=== PATIENT | male | born 1945 | race Caucasian/White ===

== ENCOUNTER → 2018-06-15 | Outpatient (CLI) | payer MEDICARE | END | disposition home or self-care (01) | LOC: SHCH 08:06 | PROVIDERS: ATTEND Internal Medicine Cardiovascular Disease | DX: I11.9 Hypertensive heart disease without heart failure (principal) | CPT/HCPCS: 93306 ==

== ENCOUNTER → 2018-06-20 | Outpatient (CLI) | payer MEDICARE | END | disposition home or self-care (01) | LOC: SHCH 08:36 | PROVIDERS: ATTEND Internal Medicine Cardiovascular Disease | DX: I71.4 Abdominal aortic aneurysm, without rupture (principal) | CPT/HCPCS: 93978 ==

== ENCOUNTER → 2018-06-28 | Outpatient (CLI) | payer OTHER | END | disposition home or self-care (01) | LOC: OIH 14:03 | PROVIDERS: ATTEND Internal Medicine Cardiovascular Disease | DX: Z13.6 Encounter for screening for cardiovascular disorders (principal) | CPT/HCPCS: 75571 ==

== ENCOUNTER 2020-11-04 10:23 | Day surgery (SDC) | payer MEDICARE ==
[2020-11-02 12:48] LABS: BASOPHILS % (AUTO) 0.4 % (0.0-5.0); EOSINOPHILS % (AUTO) 1.1 % (0.0-8.0); LYMPHOCYTES % (AUTO) 17.5 % (21.0-51.0); MEAN CORPUSCULAR HEMOGLOBIN 29.9 pg (27.0-33.0); MEAN CORPUSCULAR HGB CONC 31.8 g/dL (32.0-36.0); MEAN CORPUSCULAR VOLUME 93.9 fL (79-99); MONOCYTES % (AUTO) 7.6 % (3.0-13.0); NEUTROPHILS % (AUTO) 73.1 % (40.0-77.0); PLATELET COUNT (AUTO) 275 K/uL (130-400); RED BLOOD CELL COUNT(AUTO) 4.79 MIL/uL (4.50-6.20); RED CELL DISTRIBUTION WIDTH 13.4 % (11.0-15.5); WHITE BLOOD COUNT (AUTO) 7.9 K/uL (4.8-10.8)
[2020-11-02 12:59] LABS: APPEARANCE,URINE Clear (CLEAR); BILIRUBIN,URINE Negative (NEGATIVE); COLOR,URINE Yellow (YELLOW); GLUCOSE, URINE (UA) Negative (NEGATIVE); INR 0.96 (0.85-1.15); KETONES,URINE Trace mg/dL (NEGATIVE); LEUKOCYTE ESTERASE ,URINE Negative (NEGATIVE); NITRATE,URINE Negative (NEGATIVE); OCCULT BLOOD,URINE Negative (NEGATIVE); PH,URINE 5.5 (5.0-8.0); PROTEIN,URINE Negative (NEGATIVE); PROTHROMBIN TIME 10.5 SEC (9.6-11.6)
[2020-11-02 13:01] LABS: PARTIAL THROMBOPLASTIN TIME 26.6 SEC (26.3-35.5)
[2020-11-02 13:02] LABS: BACTERIA,URINE Rare /HPF (None Seen); RBC,URINE 0-1 /HPF (0-1); SQUAMOUS EPITHELIAL CELL,UR Rare /HPF (0-2); WBC,URINE 0-1 /HPF (0-1)
[2020-11-02 13:08] LABS: ALBUMIN 3.7 g/dL (3.5-5.0); BILIRUBIN,TOTAL 0.7 mg/dL (0.2-1.0); POTASSIUM 4.6 mmol/L (3.5-5.1); TOTAL PROTEIN, SERUM 6.9 g/dL (6.0-8.3)
[2020-11-03 10:46] VITALS: BP 143/72
[~2020-11-04] VITALS: Ht 175.3 cm; Wt 87.1 kg
[2020-11-04] VITALS (23 sets, daily range): BP systolic 123–165; BP diastolic 77–95
[~2020-11-04 10:23] MED LIST: 0.9%NACL 1000ML 1,000 ML IV SCH; AMLO1CAP14 PO; CEFAZOLIN SODIUM 1 GM VIAL IVP ONE; CETI-89 PO; DONE5TAB33 PO; PREVAGEN PO; SAW160CA3 PO
[2020-11-04] MEDS ORDERED: LACTATED RINGERS 1000ML 1,000 ML IV ONE (10:41)
[2020-11-04] MEDS ORDERED: CEFAZOLIN SODIUM 1 GM VIAL ONE (11:00)
[2020-11-04] MEDS ORDERED: BUPIVACAINE/PF 0.5% 30ML VIAL ONE (11:12)
[2020-11-04] MEDS ORDERED: FENTANYL CITRATE PF 50 MCG/1 ML 2ML VIAL ONE (12:11)
[2020-11-04] MEDS ORDERED: LIDOCAINE PF 100MG/5ML (2%) SYRINGE 5ML ONE (12:11)
[2020-11-04] MEDS ORDERED: MIDAZOLAM HCL 1 MG/ML 2ML VIAL ONE (12:11)
[2020-11-04] MEDS ORDERED: PROPOFOL 10 MG/ML 20ML VIAL IV ONE ×2 (12:11→13:02)
[2020-11-04] MEDS ORDERED: ROCURONIUM 10MG/1ML SYR 10 MG/ML ML ONE ×2 (12:11→13:10)
[2020-11-04] MEDS ORDERED: GLYCOPYRROLATE 1 MG/5 ML SYRINGE ONE ×2 (12:42→14:23)
[2020-11-04] MEDS ORDERED: EPHEDRINE SULFATE 50 MG/ML AMPULE ONE (12:53)
[2020-11-04] MEDS ORDERED: ROPIVACAINE 0.5% 5MG/ML 30ML IJ ONE (14:20)
[2020-11-04] MEDS ORDERED: NEOSTIGMINE 5MG/5ML SYR IV ONE (14:23)
[2020-11-04] MEDS ORDERED: MEPERIDINE-PF 25 MG/ML SYG ONE ×2 (14:58→15:10)
[2020-11-04] MEDS ORDERED: SIMETHICONE 80 MG TAB.CHEW ONE (16:08)
[2020-11-04] MEDS ORDERED: KETOROLAC 30MG VIAL (30MG/ML) ONE (16:48)
== END 2020-11-04 18:25 | disposition home or self-care (01) ==
LOC: DAH 10:23
PROVIDERS: ATTEND Student in an Organized Health Care Education/Training Program
DX: K43.2 Incisional hernia without obstruction or gangrene (principal); Z20.822 Contact with and (suspected) exposure to COVID-19; E66.9 Obesity, unspecified; Z85.46 Personal history of malignant neoplasm of prostate; Z68.26 Body mass index [BMI] 26.0-26.9, adult; Z79.01 Long term (current) use of anticoagulants; Z87.891 Personal history of nicotine dependence
CPT/HCPCS: 36415; 49654; 71045; 80053; 81001; 85025; 85610; 85730; 87426; 93005; A4215; A4221; A4222; A4223; A4649 ×2; A4663; C1769 ×3; G0168; J0690; J1885; J2001; J2175 ×2; J2250; J2704 ×2; J2710; J2795; J3010; J3490 ×4; J7030; J7120 ×2

== ENCOUNTER 2023-06-20 13:23 | Observation (INO) | payer MEDICARE, OTHER ==
[~2023-06-20] VITALS: Ht 175.3 cm; Wt 88.5 kg
[~2023-06-20 13:23] MED LIST changes: -0.9%NACL 1000ML 1,000 ML IV SCH; -AMLO1CAP14 PO; +AMLO1CAP87 PO; -CEFAZOLIN SODIUM 1 GM VIAL IVP ONE
[2023-06-20 16:31] LABS: BASOPHILS # (AUTO) 0.02 K/uL (0.00-0.20); BASOPHILS % (AUTO) 0.4 % (0.0-5.0); EOSINOPHILS # (AUTO) 0.02 K/uL (0.00-0.70); EOSINOPHILS % (AUTO) 0.4 % (0.0-8.0); HEMATOCRIT 41.9 % (42-54); IMMATURE GRANULOCYTE ABSOLUTE 0.01 K/uL (0-1); LYMPHOCYTES # (AUTO) 0.8 K/uL (1.0-4.8); LYMPHOCYTES % (AUTO) 14.9 % (21.0-51.0); MEAN CORPUSCULAR HEMOGLOBIN 30.1 pg (27.0-33.0); MEAN CORPUSCULAR HGB CONC 32.2 g/dL (32.0-36.0); MEAN CORPUSCULAR VOLUME 93.3 fL (79-99); MONOCYTES # (AUTO) 0.7 K/uL (0.1-1.0); MONOCYTES % (AUTO) 13.2 % (3.0-13.0); NEUTROPHILS # (AUTO) 3.9 K/uL (1.8-7.7); NEUTROPHILS % (AUTO) 70.9 % (40.0-77.0); PLATELET COUNT (AUTO) 222 K/uL (130-400); RED BLOOD CELL COUNT(AUTO) 4.49 MIL/uL (4.50-6.20); RED CELL DISTRIBUTION WIDTH 13.3 % (11.0-15.5); WHITE BLOOD COUNT (AUTO) 5.5 K/uL (4.8-10.8)
[2023-06-20 16:33] LABS: RAPID GROUP A STREP negative (NEGATIVE)
[2023-06-20 16:34] LABS: COVID19 (SARS ANTIGEN RAPID) PRESUMPTIVE NEGATIVE (NEGATIVE)
[2023-06-20 16:35] LABS: CREATININE 0.7 mg/dL (0.5-1.3); POTASSIUM 3.7 mmol/L (3.5-5.1)
[2023-06-20 16:35] LABS: INFLUENZA TYPE A Negative For Type A (NEGATIVE); INFLUENZA TYPE B Negative For Type B (NEGATIVE)
[2023-06-20 16:40] LABS: ALBUMIN 3.4 g/dL (3.5-5.0); BILIRUBIN,TOTAL 0.9 mg/dL (0.2-1.0); TOTAL PROTEIN, SERUM 6.9 g/dL (6.0-8.3)
[2023-06-20] MEDS: ALBUTEROL 0.083% 2.5 MG/3 ML INH IH ONE (17:23)
[2023-06-20 17:24] VITALS: PULSE 90; RESP 20
[2023-06-20] MEDS: GUAIFENESIN 600 MG TABLET.ER PO ONE (19:10)
[2023-06-20] MEDS: ENOXAPARIN SODIUM 100 MG/1 ML SQ ONE (19:10)
[2023-06-20] MEDS: ASPIRIN 325MG TAB PO ONE (19:10)
[2023-06-20] MEDS: METOPROLOL TARTRATE 1 MG/ML 5ML VIAL IV ONE (19:11)
[2023-06-20] MEDS: 0.9%NACL 1000ML 1,000 ML IV ONE (19:11)
[2023-06-20] MEDS ORDERED: KETOROLAC 15MG/ML VIAL (15MG/ML) IV PRN (19:30)
[2023-06-20] MEDS ORDERED: HYDROCODONE/ACETAMINOPHEN 5/325 MG TAB PO PRN (19:30)
[2023-06-20] MEDS ORDERED: ALBUTEROL 0.083% 2.5 MG/3 ML INH IH PRN (19:30)
[2023-06-20] MEDS ORDERED: DiphenhydrAMINE HCL 50 MG/ML VIAL IV PRN (19:30)
[2023-06-20] MEDS ORDERED: ZOLPIDEM TARTRATE 5 MG TAB PO PRN (19:30)
[2023-06-20] MEDS ORDERED: ACETAMINOPHEN 325 MG TAB PO PRN ×3 (19:30)
[2023-06-20] MEDS ORDERED: NITROGLYCERIN 0.4 MG SL TAB SL PRN (19:30)
[2023-06-20] MEDS ORDERED: GUAIFENESIN-DM 200/20 MG 10 ML PO PRN (19:30)
[2023-06-20] MEDS ORDERED: FAMOTIDINE 20MG VIAL IV PRN (19:30)
[2023-06-20] MEDS ORDERED: LACTULOSE 20 GM/30 ML UDCUP PO PRN (19:30)
[2023-06-20] MEDS ORDERED: MAG/ALUM/SIMETH 30 ML UDCUP PO PRN (19:30)
[2023-06-20] MEDS: INSULIN HUMULIN R 100 UNIT/ML 3ML SQ SCH (21:00)
[2023-06-20] MEDS: FAMOTIDINE 20MG VIAL IV SCH (21:07)
[2023-06-20 21:28] LABS: ADD UA MICROSCOPIC YES; APPEARANCE,URINE CLEAR (CLEAR); BILIRUBIN,URINE NEGATIVE (NEGATIVE); COLOR,URINE LIGHT-YELLOW (YELLOW); GLUCOSE, URINE (UA) >=1000 mg/dL (NEGATIVE); KETONES,URINE 20 mg/dL (NEGATIVE); LEUKOCYTE ESTERASE ,URINE NEGATIVE Leu/uL (NEGATIVE); NITRATE,URINE NEGATIVE (NEGATIVE); PH,URINE 6.5 (5.0-8.0); PROTEIN,URINE 10 mg/dL (NEGATIVE); UROBILINOGEN,URINE 0.2 mg/dL (0.2-1.0)
[2023-06-20 21:30] LABS: MUCUS,URINE RARE LPF (None Seen); WBC,URINE 0-1 /HPF (0-1)
[2023-06-21] VITALS (9 sets, daily range): BP systolic 154–178; BP diastolic 65–102; PULSE 83–104; RESP 18–20; O2SAT 96–98
[2023-06-21] MEDS: HYDRALAZINE 20MG/ML VIAL IV PRN ×2 (00:16→21:28)
[2023-06-21] MEDS: ACETAMINOPHEN WITH CODEINE 1 TAB TAB PO PRN (02:10)
[2023-06-21] MEDS ORDERED: ATOR20TA65 PO (02:25)
[2023-06-21] MEDS ORDERED: EMPA25TA PO (02:25)
[2023-06-21] MEDS ORDERED: LOSA50TA64 PO (02:25)
[2023-06-21] MEDS ORDERED: AEC81 PO (02:25)
[2023-06-21] MEDS ORDERED: SERT-439 PO (02:25)
[2023-06-21] MEDS ORDERED: METH-811 PO (02:25)
[2023-06-21] MEDS ORDERED: SODI325T PO (02:25)
[2023-06-21] MEDS ORDERED: MEMA10TA21 PO (02:25)
[2023-06-21] MEDS ORDERED: RISP0.2515 PO (02:25)
[2023-06-21] MEDS ORDERED: OMEP20CA12 PO (02:25)
[2023-06-21] MEDS: LOSARTAN 50 MG TABLET PO ONE (02:49)
[2023-06-21] MEDS ORDERED: KCL 20 MEQ ERTAB PO PRN (04:00)
[2023-06-21] MEDS ORDERED: POTASSIUM CHLORIDE 20MEQ/100ML 100 ML IV PRN (04:00)
[2023-06-21] MEDS: ONDANSETRON 4MG INJ IV PRN (05:47)
[2023-06-21 05:57] LABS: BASOPHILS # (AUTO) 0.04 K/uL (0.00-0.20); BASOPHILS % (AUTO) 0.6 % (0.0-5.0); EOSINOPHILS % (AUTO) 2.8 % (0.0-8.0); HEMATOCRIT 43.2 % (42-54); IMMATURE GRANULOCYTE ABSOLUTE 0.02 K/uL (0-1); LYMPHOCYTES # (AUTO) 0.8 K/uL (1.0-4.8); LYMPHOCYTES % (AUTO) 10.9 % (21.0-51.0); MEAN CORPUSCULAR HEMOGLOBIN 30.2 pg (27.0-33.0); MEAN CORPUSCULAR HGB CONC 33.3 g/dL (32.0-36.0); MEAN CORPUSCULAR VOLUME 90.6 fL (79-99); MONOCYTES # (AUTO) 0.5 K/uL (0.1-1.0); MONOCYTES % (AUTO) 6.5 % (3.0-13.0); NEUTROPHILS # (AUTO) 5.6 K/uL (1.8-7.7); NEUTROPHILS % (AUTO) 78.9 % (40.0-77.0); PLATELET COUNT (AUTO) 211 K/uL (130-400); RED BLOOD CELL COUNT(AUTO) 4.77 MIL/uL (4.50-6.20); RED CELL DISTRIBUTION WIDTH 13.2 % (11.0-15.5); WHITE BLOOD COUNT (AUTO) 7.1 K/uL (4.8-10.8)
[2023-06-21 06:19] LABS: INR 0.94 (0.85-1.15); PROTHROMBIN TIME 11.1 SEC (9.6-11.6)
[2023-06-21 06:20] LABS: HEMOGLOBIN A1C 5.5 % (4.0-6.0)
[2023-06-21 06:25] LABS: ALANINE AMINOTRANSFERASE 27 U/L (12-78); ALBUMIN 3.5 g/dL (3.5-5.0); AMMONIA < 10 umol/L (11-32); ASPARTATE AMINOTRANSFERASE 40 U/L (10-37); BILIRUBIN,DIRECT 0.2 mg/dL (0.0-0.3); BILIRUBIN,TOTAL 0.8 mg/dL (0.2-1.0); CARBON DIOXIDE 25 mmol/L (21-32); CHLORIDE 100 mmol/L (101-111); CREATININE 0.7 mg/dL (0.5-1.3); GLOMERULAR FILTR. RATE CALC 94 mL/min (>90); GLUCOSE,RANDOM 82 mg/dL (70-105); POTASSIUM 3.1 mmol/L (3.5-5.1); SODIUM SERUM 137 mmol/L (136-145); UREA NITROGEN, BLOOD 12 mg/dL (7-18)
[2023-06-21 06:28] LABS: CREATINE KINASE, TOTAL 517 U/L (21-232)
[2023-06-21] MEDS: POTASSIUM CHLORIDE 10% ELIXIR 20 MEQ/15 ML UDCUP PO PRN (06:31)
[2023-06-21] MEDS: ASPIRIN 81 MG EC TAB PO SCH (08:15)
[2023-06-21] MEDS: SODIUM BICARBONATE 650 MG TAB PO SCH (08:18)
[2023-06-21] MEDS: RISPERIDONE 0.5 MG TABLET PO SCH (08:18)
[2023-06-21] MEDS: LOSARTAN 50 MG TABLET PO SCH (08:19)
[2023-06-21] MEDS: CETIRIZINE HCL 5 MG TABLET PO SCH (08:20)
[2023-06-21] MEDS: SERTRALINE HCL 50 MG TABLET PO SCH (08:20)
[2023-06-21] MEDS: DONEPEZIL HCL 5 MG TAB PO SCH (08:20)
[2023-06-21] MEDS: MEMANTINE HCL 5 MG TABLET PO SCH (08:20)
[2023-06-21] MEDS: ENOXAPARIN SODIUM 100 MG/1 ML SQ SCH (08:21)
[2023-06-21] MEDS: BENAZEPRIL PO SCH (09:00)
[2023-06-21] MEDS: AMLODIPINE BESYLATE PO SCH (09:00)
[2023-06-21] MEDS: PANTOPRAZOLE 40 MG TAB DR PO SCH (09:00)
[2023-06-21] MEDS ORDERED: CYCLOBENZAPRINE HCL 10 MG TABLET PO SCH (09:00)
[2023-06-21] MEDS: ([Prevagen] 1 TAB) PO SCH (09:00)
[2023-06-21 10:58] LABS: THYROID STIMULATING HORMONE 0.9 uIU/mL (0.36-3.74)
[2023-06-21] MEDS: MAGNESIUM 2GM PREMIX 50ML 50 ML IV PRN (18:39)
[2023-06-21] MEDS: ATORVASTATIN 20 MG TABLET PO SCH (20:49)
[2023-06-21] MEDS: RISPERIDONE 1 MG TABLET PO SCH (21:34)
[2023-06-22] VITALS (7 sets, daily range): BP systolic 107–171; BP diastolic 68–83; PULSE 85–91; RESP 20; O2SAT 98
[2023-06-22 03:55] LABS: BASOPHILS # (AUTO) 0.01 K/uL (0.00-0.20); BASOPHILS % (AUTO) 0.2 % (0.0-5.0); EOSINOPHILS # (AUTO) 0.02 K/uL (0.00-0.70); EOSINOPHILS % (AUTO) 0.3 % (0.0-8.0); HEMATOCRIT 43.6 % (42-54); IMMATURE GRANULOCYTE ABSOLUTE 0.01 K/uL (0-1); LYMPHOCYTES # (AUTO) 1.2 K/uL (1.0-4.8); LYMPHOCYTES % (AUTO) 20.7 % (21.0-51.0); MEAN CORPUSCULAR HEMOGLOBIN 29.9 pg (27.0-33.0); MEAN CORPUSCULAR HGB CONC 31.9 g/dL (32.0-36.0); MEAN CORPUSCULAR VOLUME 93.8 fL (79-99); MONOCYTES # (AUTO) 0.6 K/uL (0.1-1.0); MONOCYTES % (AUTO) 10.9 % (3.0-13.0); NEUTROPHILS % (AUTO) 67.7 % (40.0-77.0); PLATELET COUNT (AUTO) 235 K/uL (130-400); RED BLOOD CELL COUNT(AUTO) 4.65 MIL/uL (4.50-6.20); RED CELL DISTRIBUTION WIDTH 13.4 % (11.0-15.5); WHITE BLOOD COUNT (AUTO) 5.9 K/uL (4.8-10.8)
[2023-06-22 04:04] LABS: ALBUMIN 3.2 g/dL (3.5-5.0); BILIRUBIN,TOTAL 0.6 mg/dL (0.2-1.0); CREATININE 1.1 mg/dL (0.5-1.3); MAGNESIUM 2.6 mg/dL (1.80-2.40); POTASSIUM 3.3 mmol/L (3.5-5.1); TOTAL PROTEIN, SERUM 6.6 g/dL (6.0-8.3)
== END 2023-06-22 16:59 | disposition home or self-care (01) ==
LOC: EDH 13:23 → EDHIP 19:12 → 2DH 06-21 14:08
PROVIDERS: ADMIT Hospitalist; ATTEND Hospitalist
DX: I48.91 Unspecified atrial fibrillation (principal); Z20.822 Contact with and (suspected) exposure to COVID-19; I10 Essential (primary) hypertension; E11.65 Type 2 diabetes mellitus with hyperglycemia; F03.90 Unspecified dementia, unspecified severity, without behavioral disturbance, psychotic disturbance, mood disturbance, and anxiety; E78.5 Hyperlipidemia, unspecified; E87.6 Hypokalemia; E44.1 Mild protein-calorie malnutrition; I08.0 Rheumatic disorders of both mitral and aortic valves; R42 Dizziness and giddiness; Z63.4 Disappearance and death of family member; Z79.899 Other long term (current) drug therapy
CPT/HCPCS: 96372 ×2; 96361; 96375 ×2; 99285; 84484 ×3; 80053 ×2; 85025 ×3; 85378; 87880; 87804 ×2; 82948 ×7; 87426; 81001; 36415 ×3; 71045; 93005; 94640; 94664; 96376 ×2; 96365; 83036; 84443; 82550; 80076; 83735 ×2; 80061; 80048; 83880; 82140; 85610; 83605; 73562; 70450; 93306; 93880; 84145; 97161; 97116; G0378 ×43; J3490 ×5; J1650 ×2; J3475; J0360 ×4; J2405; A4510; A4344

== ENCOUNTER 2023-10-23 15:17 | Emergency (ER) | payer OTHER, MEDICARE ==
[~2023-10-23] VITALS: Ht 175.3 cm; Wt 102.1 kg
[~2023-10-23 15:17] MED LIST changes: +AEC81 PO; -AMLO1CAP87 PO; +ATOR20TA65 PO; +EMPA25TA PO; +LOSA50TA64 PO; +MEMA10TA21 PO; +METH-811 PO; +OMEP20CA12 PO; -PREVAGEN PO; +RISP0.2515 PO; -SAW160CA3 PO; +SERT-439 PO; +SODI325T PO
[2023-10-23] MEDS: IBUPROFEN 400 MG TABLET PO ONE (17:07)
[2023-10-23] MEDS: ACETAMINOPHEN 500 MG TABLET PO ONE (17:07)
[2023-10-23 17:21] VITALS: BP 126/68; PULSE 76; RESP 20; O2SAT 97
== END 2023-10-23 17:25 | disposition home or self-care (01) ==
LOC: EDH 15:17
DX: S00.03XA Contusion of scalp, initial encounter (principal); M54.2 Cervicalgia; Z79.82 Long term (current) use of aspirin; Z79.899 Other long term (current) drug therapy; W01.0XXA Fall on same level from slipping, tripping and stumbling without subsequent striking against object, initial encounter; Y93.89 Activity, other specified; Y92.89 Other specified places as the place of occurrence of the external cause; Y99.8 Other external cause status
CPT/HCPCS: 70450; 72125